=== PATIENT | female | born 1980 | race Asian ===

== ENCOUNTER 2017-12-20 20:16 | Emergency (ER) | payer OTHER ==
[2017-12-20 22:11] LABS: URINE BLOOD (Dip) POC Negative (NEGATIVE); URINE GLUCOSE (Dip) POC Negative (NEGATIVE); URINE KETONES (Dip) POC Negative (NEGATIVE); URINE LEUKOCYTE EST (Dip) POC Trace (NEGATIVE); URINE NITRITE (Dip) POC Negative (NEGATIVE); URINE TOTAL PROTEIN POC Negative (NEGATIVE)
[2017-12-20] MEDS: LIDOCAINE/MYLANTA 40 ML BTL PO (22:11)
[2017-12-20] MEDS: RANITIDINE 150 MG TAB PO (22:14)
== END 2017-12-20 23:57 | disposition home or self-care (01) ==
LOC: FTE 20:16
DX: R10.13 Epigastric pain (principal); R40.2412 Glasgow coma scale score 13-15, at arrival to emergency department
CPT/HCPCS: 81003; 81025; 99283

== ENCOUNTER 2017-12-30 19:23 | Emergency (ER) | payer OTHER ==
[2017-12-30] MEDS: METHYLPREDNISOLONE 125 MG INJ IM (21:20)
[2017-12-30] MEDS: ALBUTEROL 0.5% (NEB) 2.5 MG/0.5 ML AMP INH (21:29)
[2017-12-30] MEDS: IPRATROPIUM (NEB) 0.5 MG/2.5 ML AMP NEB (21:30)
== END 2017-12-30 22:22 | disposition home or self-care (01) ==
LOC: FTE 19:23
DX: J20.9 Acute bronchitis, unspecified (principal); J45.909 Unspecified asthma, uncomplicated
CPT/HCPCS: 94664; 96372; 99284-25